=== PATIENT | male | born 1975 | race American Indian/Alaskan Native ===

== ENCOUNTER 2018-08-20 08:56 | Day surgery (SDC) | payer BC ==
[2018-08-20] MEDS ORDERED: LACTATED RINGERS 1,000 ML ONE (09:19)
[2018-08-20] MEDS ORDERED: VERSED ONE (09:19)
[2018-08-20] MEDS ORDERED: ZOFRAN IV PRN (09:31)
[2018-08-20] MEDS ORDERED: DILAUDID IV PRN (09:31)
--- NOTE | 2018-08-20 09:32 | Anesthesia Day of Surgery ---
Anesthesia Day of Surgery - Day of Surgery Patient Examined: Yes Patient H&P Reviewed: Yes Patient is NPO: Yes
--- NOTE | 2018-08-20 09:32 | Anesthesia Consultation ---
Anesthesia Consult and Med Hx Date of service: 08/20/18 - Airway Anesthetic Teeth Evaluation: Good ROM Head & Neck: Adequate Mental/Hyoid Distance: Adequate Mallampati Class: Class III Intubation Access Assessment: Possibly Difficult - Pulmonary Exam CTA: Yes - Cardiac Exam Cardiac Exam: RRR - Pre-Operative Health Status ASA Pre-Surgery Classification: ASA2 Proposed Anesthetic Plan: General (HTN, Denies GERD) - Pulmonary Hx Smoking: No Hx Sleep Apnea: Yes (DX SLEEP APNEA WITH BIPAP USE.) - Cardiovascular System Hx Hypertension: (X 6 MONTHS) - Other Systems Hx Cancer: No
[2018-08-20] MEDS ORDERED: HEPARIN SUB-Q NR (09:45)
[2018-08-20] MEDS ORDERED: ANCEF/STERILE WATER 2 GM/20 ML IV NR (10:00)
[2018-08-20] MEDS ORDERED: LACTATED RINGERS 1,000 ML IV SCH (10:00)
[2018-08-20] MEDS ORDERED: MARCAINE-EPI 0.5%-1:200,000 INFILTRATI ONE ×2 (10:28→11:49)
[2018-08-20] MEDS ORDERED: DILAUDID ONE (11:00)
[2018-08-20] MEDS ORDERED: DIPRIVAN 10 MG/ML IV ONE (11:00)
[2018-08-20] MEDS ORDERED: QUELICIN ONE (11:01)
[2018-08-20] MEDS ORDERED: XYLOCAINE MPF 2% ONE (11:01)
[2018-08-20] MEDS ORDERED: ZEMURON IV ONE (11:01)
[2018-08-20] MEDS ORDERED: NACL 0.9% IR ONE (11:49)
[2018-08-20] MEDS ORDERED: ROBINUL ONE ×2 (12:07→12:08)
[2018-08-20] MEDS ORDERED: BLOXIVERZ ONE (12:07)
[2018-08-20] MEDS ORDERED: ZOFRAN ONE (12:07)
--- NOTE | 2018-08-20 12:57 | Post Operative Note ---
Pre-op diagnosis: Incarcerated epigastric hernia Post-op diagnosis: same Findings: Incarcerated omentum Procedure: Open repair with small Ventralex ST mesh Anesthesia: other (LMA) Surgeon: GILBERTO STRATTON Estimated blood loss: minimal Pathology: none Condition: stable Disposition: PACU
[2018-08-20] MEDS ORDERED: PERCOCET 5/325 PO PRN (13:20)
[2018-08-20] MEDS ORDERED: PERCOCET 5/325 ONE (13:28)
[2018-08-20 13:36] VITALS: BP 123/83
--- NOTE | 2018-08-31 14:10 | Procedure Note ---
Date of procedure: 08/20/18 Pre-op diagnosis: Incarcerated epigastric hernia Post-op diagnosis: same Procedure: Open repair of incarcerated epigastric hernia with mesh Description of procedure: Pt was placed supine on the OR table. General anesthesia by LMA was administered. Abdomen was prepped and draped. The proposed midline incision was infiltrated with 7 ml of 0.5% Marcaine with epinephrine. A vertical midline incision was made over the epigastric mass. The incarcerated hernia was immediately identified. The hernia sac was dissected down to its fascial margins. The sac was incised and was found to contain incarcerated omentum. The omentum was freed from the sac and the omentum reduced back into the peritoneal cavity. The sac was then excised. A small piece of Ventralex ST mesh was inserted through the fascial defect and was appropriately positioned. The mesh was fixed to the abdominal wall and the defect simultaneously closed with several interrupted sutures of 0-Ethibond. Subcutaneous tissue was approximated with a running 3-0 Vicryl. Skin was appro ximated with a running, subcuticular suture of 4-0 Monocryl. Skin glue was applied over the incision. Pt tolerated the procedure well. He was taken to PACU in stable condition. Anesthesia: other (LMA) Surgeon: GILBERTO STRATTON Estimated blood loss: minimal Pathology: none Condition: stable Disposition: PACU
== END 2018-08-20 14:13 | disposition home or self-care (01) ==
LOC: OR 08:56
PROVIDERS: ATTEND Surgery
DX: K43.6 Other and unspecified ventral hernia with obstruction, without gangrene (principal); I10 Essential (primary) hypertension; G47.30 Sleep apnea, unspecified; Z98.890 Other specified postprocedural states; Z79.899 Other long term (current) drug therapy
CPT/HCPCS: 49572; C1781; J0330; J1170; J1644; J2250; J2405; J2704; J2710; J7120